=== PATIENT | male | born 1965 | race Hispanic/Latino ===

== ENCOUNTER 2018-06-22 11:21 | Emergency (ER) | payer BC ==
[2018-06-22 11:41] VITALS: TEMP 98.1; O2SAT 95
--- NOTE | 2018-06-22 12:19 | C.PDOC ---
History Of Present Illness Patient complains of chest pain which started this morning around 9:30am on commute train to work in [place]. Describes pain as squeezing chest pain worse on left side. Reports tingling going down both arms. He reports nausea and v omited.Reports central abdominal pain last night with associated 4 episodes of non-bilious vomiting. He got to work and was still feeling unwell. He went to [facility] and was evaluated, given ASA 4 tabs 81mg. His EKG was NS at [address] elevation. He was told to go to ER. Patient has no known medical history, has no physician last physical was decade ago. Denies any headache, dizziness, fever, back pain, SOB. Currently in the ED he states the pain has subsided. MAGDALENA Risk Score for UA/NSTEMI - MAGDALENA Risk Score Age > 64: NO 3 or more CAD Risk Factors: NO Known CAD (Stenosis greater than 50%): NO Aspirin use in past 7 days: YES Severe Angina: NO EKG ST changes greater than 0.5mm: NO Positive Cardiac Marker: NO MAGDALENA Score: 1 % risk at 14 days of: all cause mortality, new or recurrent [place], or severe recurrent ischemia requiring urgen revascularization: 5% Time Seen by Provider: 06/22/18 11:59 Chief Complaint (Nursing): Chest Pain History Per: Patient History/Exam Limitations: no limitations Onset/Duration Of Symptoms: Hrs Current Symptoms Are (Timing): Better Quality: Squeezing Past Medical History Reviewed: Historical Data, Nursing Documentation, Vital Signs Vital Signs: Last Vital Signs Temp 98.1 F 06/22/18 11:37 Pulse 69 06/22/18 11:37 Resp 18 06/22/18 11:37 BP 167/107 H 06/22/18 11:37 Pulse Ox 95 06/22/18 11:37 - Medical History PMH: No Chronic Diseases Surgical History: No Surg Hx Family History: States: [place] (grandfather <50 y.o), CAD - Social History Hx Tobacco Use: No (1985 quit smoking) Hx Alcohol Use: No Hx Substance Use: No - Immunization History Hx Tetanus Toxoid Vaccination: Yes Hx Influenza Vaccination: No Hx Pneumococcal Vaccination: No Review Of Systems Constitutional: Negative for: Fever Cardiovascular: Positive for: Chest Pain (L>R). Negative for: Palpitations, Light Headedness Respiratory: Negative for: Shortness of Breath Gastrointestinal: Positive for: Nausea, Vomiting, Abdominal Pain Musculoskeletal: Positive for: Other (tingling sensation to b/l arms ). Neg ative for: Back Pain Neurological: Negative for: Change in Speech, Headache, Dizziness Physical Exam - Physical Exam Appears: Well, Non-toxic, No Acute Distress Skin: Warm, Dry Head: Atraumatic, Normacephalic Eye(s): bilateral: Normal Inspection, EOMI Nose: Normal Oral Mucosa: Moist Throat: Normal Neck: Normal ROM, Supple Chest: Symmetrical, No Tenderness (chest wall ), No Subcutaneous Emphysema Cardiovascular: Rhythm Regular Respiratory: Normal Breath Sounds, No Rales, No Rhonchi, No Wheezing Gastrointestinal/Abdominal: Bowel Sounds (normal; active), Soft, No Tenderness Back: No CVA Tenderness Extremity: Bilateral: Atraumatic, No Pedal Edema, Normal Color And Temperature, Normal ROM Pulses: Left Radial: Normal Neurological/Psych: Oriented x3, Normal Speech Gait: Steady ED Course And Treatment - Laboratory Results Result Diagrams: 06/22/18 12:37 06/22/18 12:37 Lab Interpretation: No Acute Changes ECG: Interpreted By Me, Viewed By Me ECG Rhythm: Sinus Rhythm ECG Interpretation: No Acute Changes Rate From EC O2 Sat by Pulse Oximetry: 95 (RA) Pulse Ox Interpretation: Normal - Other Rad obstructive series X-Ray: Read By Radiologist Interpretation: Accession No. : [id number]. Patient Name / ID : PADMINI Tatum / [id number]. Exam Date : 06/22/2018 12:23:02 ( Approved ). Study Comment : Sex / Age : M / 52Y. Creator : Jaylan Reyes MD. Dictator : Jaylan Reyes MD. Wwe Wrestler : Flat Grinder Operator : Jaylan Reyes MD. Approver2 : Report Date : 06/22/2018 12:50:24. My Comment : . Date of service: 06/22/2018. PROCEDURE: Radiographs of the chest and abdomen (obstructive series). HISTORY: Chest and abdominal pain. COMPARISON: No prior. TECHNIQUE: AP radiograph of the chest, with upright and supine radiographs of the abdomen. FINDINGS: CHEST: Heart size is upper limits of normal/borderline enlarged. No significant aortic aortic atherosclerotic calcification present poor inspiration with low lung volumes. Crowded bronchovascular markings and minor bibasilar atelectasis. No effusion. No apparent pneumothorax. ABDOMEN AND PELVIS: No evidence of free intraperitoneal air seen under the diaphragmatic surfaces. Nonobstructive/nonspecific bowel gas pattern. There is minor levoscoliosis centered at the lower thoracic region.. Multilevel degenerative spondylosis of the thoracic and lumbar spine. The the spine. Probable small bone island or osteoma right inferior iliac bone. IMPRESSION: Poor inspiration with low lung volumes, crowded bronchovascular markings and minor bibasilar atelectasis. No free air. No evidence of acute mechanical bowel obstruction. Medical Decision Making Medical Decision Making: Plan: -- cbc, chem labs -- Obstructive series --EKG --cardiac monitoring Progress: EKG viewed by MD and myself shows no STEMI. Patient was placed on bung dropper and observed in the ED while awaiting labwork. Labs reviewed and unremarkable. Triglycerides borderline high. Xray showed no active disease Based on negative findings on EKG, xray and monitor very low suspicion for ACS The patient remained well and in no distress. On re-eval, the blood pressure was normal and had stable vital signs. He denied any more chest pain. He was alert and oriented with good breath sounds. I discussed his results and provided copy of lab and xray findings. Advised the patient to find PCP for follow up. Patient felt comfortable going home and asked for work excuse. Disposition Counseled Patient/Family Regarding: Studies Performed, Diagnosis, Need For Followup - Disposition Referrals: [facility] [Outside] Malick Faust Jr., MD [Medical Doctor] - Disposition: HOME/ ROUTINE Disposition Time: 13:48 Condition: STABLE Additional Instructions: Your EKG, xray and lab results were within normal limits. Your triglycerides were borderline high. It is advised that you follow up with primary care physician Take Aspirin if you have any pain Return to the ER if you develop and crushing chest pain, difficulty breathing, dizziness or other concern Instructions: Chest Pain (DC) Forms: [facility] (Maltese), Work Excuse - POA Present On Arrival: None - Clinical Impression Clinical Impression: Chest pain - PA / ELECTRICAL CONTINUITY INSPECTOR / Resident Statement MD/ has reviewed & agrees with the documentation as recorded. - Scribe Statement The provider has reviewed the documentation as recorded by the Scribe Taylor Perez All medical record entries made by the Scribe were at my direction and personally dictated by me. I have reviewed the chart and agree that the record accurately reflects my personal performance of the history, physical exam, medical decision making, and the department course for this patient. I have also personally directed, reviewed, and agree with the discharge instructions and disposition.
[2018-06-22 12:42] LABS: BASO % 0.2 % (0.0-2.0); EOS # 0.1 K/uL (0.0-0.7); HEMOGLOBIN 15.6 g/dL (12.0-18.0); LYMPH # 1.6 K/uL (1.0-4.3); LYMPH % 21.8 % (20.0-40.0); MEAN CELL VOLUME 85.1 fL (80.0-94.0); MEAN CORPUSCULAR HEMOGLOBIN 29.2 pg (27.0-31.0); MEAN CORPUSCULAR HGB CONC 34.2 g/dL (33.0-37.0); MONO # 0.6 K/uL (0.0-0.8); MONO % 8.2 % (0.0-10.0); NEUT # 4.9 K/uL (1.8-7.0); NEUT % 68.8 % (50.0-75.0); RBC 5.33 Mil/uL (4.40-5.90); RED CELL DISTRIBUTION WIDTH 14.5 % (11.5-14.5); WHITE BLOOD COUNT 7.1 K/uL (4.8-10.8)
[2018-06-22 12:50] LABS: PROTHROMBIN TIME 10.9 SECONDS (9.7-12.2)
--- NOTE | 2018-06-22 12:54 | RAD ---
Date of service: 06/22/2018 PROCEDURE: Radiographs of the chest and abdomen (obstructive series) HISTORY: Chest and abdominal pain COMPARISON: No prior. TECHNIQUE: AP radiograph of the chest, with upright and supine radiographs of the abdomen. FINDINGS: CHEST: Heart size is upper limits of normal/borderline enlarged. No significant aortic aortic atherosclerotic calcification present poor inspiration with low lung volumes Crowded bronchovascular markings and minor bibasilar atelectasis. No effusion. No apparent pneumothorax. ABDOMEN AND PELVIS: No evidence of free intraperitoneal air seen under the diaphragmatic surfaces. Nonobstructive/nonspecific bowel gas pattern. There is minor levoscoliosis centered at the lower thoracic region.. Multilevel degenerative spondylosis of the thoracic and lumbar spine. The the spine Probable small bone island or osteoma right inferior iliac bone IMPRESSION: Poor inspiration with low lung volumes, crowded bronchovascular markings and minor bibasilar atelectasis. No free air. No evidence of acute mechanical bowel obstruction
[2018-06-22 13:02] LABS: ALB/GLOB RATIO 1.6 (1.0-2.1); ALBUMIN 4.5 g/dL (3.5-5.0); ALT/SGPT 35 U/L (21-72); AST/SGOT 39 U/L (17-59); BLOOD UREA NITROGEN 15 mg/dL (9-20); GFR NON-AFRICAN AMERICAN > 60; HDL CHOLESTEROL 41 mg/dL (30-70); LIPASE 41 U/L (23-300)
[2018-06-22 13:07] LABS: B-TYPE NATRIURETIC PEPTIDE 15.9 pg/mL (0-900); CK-MB 2.07 ng/mL (0.0-3.38)
[2018-06-22 13:13] LABS: LDL CHOLESTEROL 106 mg/dL (0-129)
[2018-06-22 14:12] VITALS: BP 157/95; PULSE 68; RESP 20
== END 2018-06-22 14:09 | disposition home or self-care (01) ==
LOC: C.ER 11:21
DX: R07.9 Chest pain, unspecified (principal); Z82.49 Family history of ischemic heart disease and other diseases of the circulatory system

== ENCOUNTER 2018-07-15 11:16 | Emergency (ER) | payer BC ==
[2018-07-15 11:30] VITALS: O2SAT 97
[2018-07-15] MEDS ORDERED: Aspirin 325 mg EC Tablets PO STA (12:29)
[2018-07-15 12:43] LABS: BASO % 0.6 % (0.0-2.0); EOS # 0.1 K/uL (0.0-0.7); EOS % 1.7 % (0.0-4.0); HEMOGLOBIN 14.9 g/dL (12.0-18.0); LYMPH # 1.5 K/uL (1.0-4.3); LYMPH % 21.7 % (20.0-40.0); MEAN CORPUSCULAR HEMOGLOBIN 29.3 pg (27.0-31.0); MEAN CORPUSCULAR HGB CONC 34.1 g/dL (33.0-37.0); MEAN PLATELET VOLUME 8.9 fL (7.2-11.7); MONO # 0.6 K/uL (0.0-0.8); MONO % 8.8 % (0.0-10.0); NEUT # 4.6 K/uL (1.8-7.0); NEUT % 67.2 % (50.0-75.0); RBC 5.07 Mil/uL (4.40-5.90); RED CELL DISTRIBUTION WIDTH 14.3 % (11.5-14.5); WHITE BLOOD COUNT 6.9 K/uL (4.8-10.8)
[2018-07-15 12:53] LABS: PROTHROMBIN TIME 10.8 SECONDS (9.7-12.2)
[2018-07-15 13:03] LABS: ALB/GLOB RATIO 1.6 (1.0-2.1); ALBUMIN 4.1 g/dL (3.5-5.0); ALT/SGPT 34 U/L (21-72); AST/SGOT 34 U/L (17-59); BLOOD UREA NITROGEN 10 mg/dL (9-20); CALCIUM 9.4 mg/dl (8.6-10.4); GFR NON-AFRICAN AMERICAN > 60
--- NOTE | 2018-07-15 13:08 | C.PDOC ---
History Of Present Illness 52 year old male with cardiac FHx and PMHx of rheumatoid arthritis presents for evaluation of numbness and tingling to the left shoulder for 2 weeks. Pt reports prior ED visit for similar. He notes decreased numbness, with tingling in the ED. Admits he does not have a PMD and takes no medications for RA. Denies trauma, heavy lifting, fever, chills, chest pain, pain with inspiration, shortness of breath, and any other associated symptoms. Time Seen by Provider: 07/15/18 11:40 Chief Complaint (Nursing): Chest Pain History Per: Patient History/Exam Limitations: no limitations Onset/Duration Of Symptoms: Days (x 2 weeks. ) Current Symptoms Are (Timing): Still Present Recent travel outside of the [place]: No Past Medical History Reviewed: Historical Data, Nursing Documentation, Vital Signs Vital Signs: Last Vital Signs Temp 98.1 F 07/15/18 11:28 Pulse 77 07/15/18 11:28 Resp 20 07/15/18 11:28 BP 173/98 H 07/15/18 11:28 Pulse Ox 97 07/15/18 11:28 Family History: States: [place] (grandfather <50 y.o), CAD - Social History Hx Tobacco Use: No (1985 quit smoking) Hx Alcohol Use: No Hx Substance Use: No - Immunization History Hx Tetanus Toxoid Vaccination: Yes Hx Influenza Vaccination: No Hx Pneumococcal Vaccination: No Review Of Systems Except As Marked, All Systems Reviewed And Found Negative. Constitutional: Negative for: Fever, Chills, Other ((-) trauma. ) Cardiovascular: Negative for: Chest Pain Respiratory: Negative for: Shortness of Breath, Other (pain with inspiration. ) Neurological: Positive for: Other ((+) numbness and tingling of the left shoulder radiating down to the left hand. ) Physical Exam - Physical Exam Appears: Non-toxic, No Acute Distress Skin: Warm, Dry, No Rash Head: Atraumatic, Normacephalic Eye(s): bilateral: Normal Inspection, PERRL, EOMI Oral Mucosa: Moist Throat: No Erythema, No Exudate, No Drooling Neck: Normal ROM, No Midline Cervical Tenderness, Paracervical Tenderness (left sided), Supple Lymphatic: Normal Exam Chest: Symmetrical, No Deformity, No Tenderness, No Ecchymosis, No Subcutaneous Emphysema Cardiovascular: Rhythm Regular, No Friction Rub, No Murmur Respiratory: Normal Breath Sounds, No Rales, No Rhonchi, No Wheezing Gastrointestinal/Abdominal: Normal Exam, Soft, No Tenderness Back: Normal Inspection, No CVA Tenderness, No Vertebral Tenderness, Other (Left parathoracic tenderness) Extremity: Normal ROM, No Tenderness, No Calf Tenderness, Capillary Refill (< 2 sec), No Swelling Extremity: Bilateral: Atraumatic, Normal Color And Temperature, Normal ROM Pulses: Left Radial: Normal, Right Radial: Normal, Left Dorsalis Pedis: Normal, Right Dorsalis Pedis: Normal Neurological/Psych: Oriented x3, Normal Speech, Normal Motor, Normal Sensation Gait: Steady ED Course And Treatment - Laboratory Results Result Diagrams: 07/15/18 12:34 07/15/18 12:34 Lab Results: PT 10.8 SECONDS (9.7-12.2) 07/15/18 12:34 INR 1.0 07/15/18 12:34 APTT 32 SECONDS (21-34) 07/15/18 12:34 Total Bilirubin 0.6 mg/dL (0.2-1.3) 07/15/18 12:34 AST 34 U/L (17-59) 07/15/18 12:34 ALT 34 U/L (21-72) 07/15/18 12:34 Alkaline Phosphatase 83 U/L (38-126) 07/15/18 12:34 Total Protein 6.7 g/dL (6.3-8.3) 07/15/18 12:34 Albumin 4.1 g/dL (3.5-5.0) 07/15/18 12:34 Globulin 2.6 gm/dL (2.2-3.9) 07/15/18 12:34 Albumin/Globulin Ratio 1.6 (1.0-2.1) 07/15/18 12:34 ECG: Interpreted By Me, Viewed By Me ECG Rhythm: Sinus Rhythm Rate From EC O2 Sat by Pulse Oximetry: 97 (RA) Pulse Ox Interpretation: Normal - Radiology CXR: Interpreted by Me CXR Interpretation: Yes: No Acute Disease. No: Infiltrates Medical Decision Making Medical Decision Making: Initial plan: -EKG -Blood sent. -Aspirin EKG compared to EKG taken 07.01.18 shows no changes. Patient was informed that the BP was elevated and to follow up with medical doctor for repeat BP checks. Reassessment: labs are WNL's. On re-exam, the patient reports improvement of symptoms. Lungs are CTA, heart is RRR, abdomen is soft, non-tender and the patient is tolerating PO well. The patient is ambulatory in the ED with steady gait. Patient was instructed to follow up with the medical doctor within 1-2 days. Return if worsened. Disposition - Disposition Referrals: Ramón Delgado MD [Staff Provider] - Austen Arteaga MD [Staff Provider] - Malick Faust Jr., MD [Medical Doctor] - Ana Maria Bautista MD [Staff Provider] - Disposition: HOME/ ROUTINE Disposition Time: 14:14 Condition: IMPROVED Additional Instructions: Follow up with the medical doctor within 1-2 days for BP recheck. Return if worsened. Prescriptions: Cyclobenzaprine [Flexeril] 5 mg PO TID #21 tab Naproxen [Naprosyn] 500 mg PO BID #20 tab Instructions: High Blood Pressure (DC), Radiculopathy (DC) Forms: [facility] (Z[place]an), Work Excuse - Clinical Impression Clinical Impression: Cervical radiculopathy, High blood pressure - PA / COTTON SAMPLER / Resident Statement MD/DO has reviewed & agrees with the documentation as recorded. - Scribe Statement The provider has reviewed the documentation as recorded by the Scribe (Lori Bush) All medical record entries made by the Scribe were at my direction and personally dictated by me. I have reviewed the chart and agree that the record accurately reflects my personal performance of the history, physical exam, medical decision making, and the department course for this patient. I have also personally directed, reviewed, and agree with the discharge instructions and disposition.
[2018-07-15 13:11] LABS: CK-MB 2.19 ng/mL (0.0-3.38)
--- NOTE | 2018-07-15 14:05 | RAD ---
Chest x-ray single frontal view HISTORY: Chest pain. Comparison: 07/15/2018 Findings: Mild venous congestion. Bilateral hilar prominence. Cardiomegaly. Degenerative changes in the spine and shoulders. Impression: Mild venous congestion. Bilateral hilar prominence. Cardiomegaly.
[2018-07-15 14:06] VITALS: BP 160/92; PULSE 64; RESP 18; TEMP 98
== END 2018-07-15 15:07 | disposition home or self-care (01) ==
LOC: C.ER 11:16
DX: M54.12 Radiculopathy, cervical region (principal); R03.0 Elevated blood-pressure reading, without diagnosis of hypertension